=== PATIENT | female | born 1980 | race Two or more races ===

== ENCOUNTER 2019-05-07 02:09 | Emergency (ER) | payer OTHER ==
[~2019-05-07] VITALS: Ht 167.6 cm; Wt 73.0 kg
[2019-05-07] MEDS ORDERED: KETOROLAC 30 MG/1 ML IVPush ONE (02:30)
[2019-05-07] MEDS ORDERED: ASPIRIN 81 MG TABLET CHEW PO ONE (02:30)
[2019-05-07] MEDS ORDERED: KETOROLAC 30 MG/1 ML ONE (02:37)
[2019-05-07] MEDS ORDERED: ASPIRIN 81 MG TABLET CHEW ONE (02:37)
[2019-05-07 02:42] LABS: ALANINE AMINOTRANSFERASE 17 U/L (12-78); ALBUMIN 4.2 g/dL (3.4-5.0); ANION GAP 6 mmol/L (5-15); CALCIUM 8.2 mg/dL (8.5-10.1); CHLORIDE 109 mmol/L (98-107)
[2019-05-07 02:46] LABS: ALKALINE PHOSPHATASE 52 U/L (45-117); BILIRUBIN,TOTAL 0.5 mg/dL (0.2-1.0); CREATININE 0.89 mg/dL (0.55-1.02); TROPONIN I < 0.015 ng/mL (0.000-0.045)
[2019-05-07 02:47] LABS: BASOPHILS # (AUTO) 0.06 x10^3/uL (0-0.1); BASOPHILS % (AUTO) 1 % (0-1); EOSINOPHILS # (AUTO) 0.12 x10^3/uL (0-0.4); EOSINOPHILS % (AUTO) 2 % (1-7); LYMPHOCYTES # (AUTO) 2.05 x10^3/uL (1-3.4); LYMPHOCYTES % (AUTO) 35 % (22-44); MD NO; MEAN CORPUSCULAR HEMOGLOBIN 30.2 pg (27.0-34.8); MEAN CORPUSCULAR VOLUME 91.6 fL (80-100); MEAN PLATELET VOLUME 10.4 fL (7.4-10.4); MONOCYTES # (AUTO) 0.35 x10^3/uL (0.2-0.8); MONOCYTES % (AUTO) 6 % (2-9); NEUTROPHILS # (AUTO) 3.22 x10^3/uL (1.8-6.8); NEUTROPHILS % (AUTO) 56 % (42-75); PLATELET COUNT 187 x10^3/uL (130-400); RED BLOOD COUNT 5.07 x10^6/uL (3.82-5.3)
--- NOTE | 2019-05-07 02:57 | NUR ---
Patient transported by EMS to ED for sharp chest pain. Per family and patient, patient reports a lengthy history of tobacco consumption and recent increase in anxiety. Patient is alert, oriented and answers questions clearly and concisely. RN educated patient and family need for cardiac markers and process. Patient verbalized understanding. patient questioned RN over problems of chronic stress and anxiety. patient educated as best RN could. Patient medicated, attached to monitor worker. Informed of waiting for laboratory tests.
[2019-05-07] MEDS ORDERED: PLEASE ENTER ALLERGIES MC SCH (03:00)
[2019-05-07 03:36] VITALS: BP 122/84
== END 2019-05-07 04:54 | disposition home or self-care (01) ==
LOC: ED 04:27
DX: R07.89 Other chest pain (principal); F17.210 Nicotine dependence, cigarettes, uncomplicated
CPT/HCPCS: 36415; 71045; 80053; 83880; 84484; 85025; 93005; 96374; 99284; J1885